=== PATIENT | male | born 1945 | race Caucasian/White ===

== ENCOUNTER 2021-03-04 14:39 | Inpatient (IN) | payer MEDICARE, MEDICAID, SELFPAY ==
[~2021-03-04] VITALS: Ht 162.6 cm; Wt 52.2 kg
--- NOTE | 2021-03-04 14:39 | NUR ---
PT BROUGHT TO BED 10 VIA [facility]
[2021-03-04 14:48] VITALS: BP 103/86
[2021-03-04] MEDS ORDERED: TAMS0.4C96 GT (15:14)
[2021-03-04] MEDS ORDERED: VANC25SO GT (15:14)
[2021-03-04] MEDS ORDERED: SULF-59 GT (15:14)
[2021-03-04] MEDS ORDERED: MULT-1328 GT (15:14)
[2021-03-04] MEDS ORDERED: LACT1CAP59 GT (15:14)
[2021-03-04] MEDS ORDERED: CLOP75TA26 GT (15:14)
[2021-03-04] MEDS ORDERED: PANT40EC GT (15:14)
[2021-03-04] MEDS ORDERED: PUL.5N INH (15:14)
[2021-03-04] MEDS ORDERED: ATOR10TA GT (15:14)
[2021-03-04] MEDS ORDERED: VITA-16 GT (15:14)
[2021-03-04] MEDS ORDERED: METO25TE2 GT (15:14)
[2021-03-04 15:25] LABS: BASOPHILS # (AUTO) 0.1 K/uL (0.00-0.22); BASOPHILS % (AUTO) 0.8 % (0.0-2.0); EOSINOPHILS # (AUTO) 0.2 K/uL (0-0.4); EOSINOPHILS % (AUTO) 1.8 % (0.0-4.0); HEMATOCRIT 27.6 % (36-52); HEMOGLOBIN 9.1 g/dL (12.0-18.0); LYMPHOCYTES # (AUTO) 2.2 K/uL (2.0-11.5); LYMPHOCYTES % (AUTO) 22.3 % (20.5-51.1); MEAN CORPUSCULAR HEMOGLOBIN 29 pg (27-31); MEAN CORPUSCULAR HGB CONC 33 g/dL (33-37); MEAN CORPUSCULAR VOLUME 87.2 fL (80-94); MONOCYTES # (AUTO) 0.8 K/uL (0.8-1.0); MONOCYTES % (AUTO) 8.6 % (1.7-9.3); NEUTROPHILS # (AUTO) 6.5 K/uL (1.8-7.7); NEUTROPHILS % (AUTO) 66.5 % (42.2-75.2); PLATELET COUNT (AUTO) 369 K/uL (140-450); RED BLOOD CELL COUNT(AUTO) 3.17 MIL/uL (4.20-6.10); RED CELL DISTRIBUTION WIDTH 19.2 % (11.6-13.7); WHITE BLOOD COUNT (AUTO) 9.8 K/uL (4.8-10.8)
--- NOTE | 2021-03-04 15:29 | NUR ---
JUNITO FROM [facility] FOR SOB/RESP DISTRESS X1 DAY. PATIENT IS NOT ORIENTED, NOT ABLE TO RESPOND TO ANY COMMANDS (AT BASELINE), GCS 11,RESP EVEN AND LABORED. RR: 45. KAYE HEARD TO BILAT LOWER LOBES. EDEMA NOTED TO RUE. PT IS A DNR/DNI (SELECTIVE TREATMENT). PATIENT APHASIC. EMS REPORTED THAT PATIENTS WAS EN ROUTE TO HOSPITAL TO ASSIST WITH INFORMATION. HX: CEREBRAL INFARCTION
--- NOTE | 2021-03-04 15:30 | NUR ---
COVID SWABS AND FLU SWAB OBTAINED
--- NOTE | 2021-03-04 15:31 | NUR ---
XRAY AT BEDSIDE AT THIS TIME
--- NOTE | 2021-03-04 15:35 | NUR ---
MIGUEL BUCKLEYZ [phone]
[2021-03-04 15:36] LABS: PROTHROMBIN TIME 12.5 secs (10.8-13.4)
[2021-03-04 15:39] LABS: ALBUMIN 1.3 g/dL (3.4-5.0); ASPARTATE AMINOTRANSFERASE 55 U/L (15-37); CARBON DIOXIDE 26.9 mmol/L (21-32); CHLORIDE 113 mmol/L (98-107); CREATININE 1.5 mg/dL (0.6-1.3); GLUCOSE 108 mg/dL (74-106); POTASSIUM 3.9 mmol/L (3.5-5.1); SODIUM SERUM 146 mmol/L (136-145); TOTAL BILIRUBIN 0.4 mg/dL (0.0-1.0); UREA NITROGEN, BLOOD 33 mg/dL (7-18)
[2021-03-04 15:45] LABS: BILIRUBIN,URINE NEGATIVE (NEGATIVE); BLOOD, URINE 1+ (NEGATIVE); COLOR,URINE YELLOW (YELLOW); LEUKOCYTE ESTERASE ,URINE 2+ (NEGATIVE); NITRITE, URINE NEGATIVE (NEGATIVE); UGLUCOSE NEGATIVE (NEGATIVE)
[2021-03-04 15:47] LABS: APPEARANCE,URINE HAZY (CLEAR)
[2021-03-04 15:48] LABS: C-REACTIVE PROTEIN QUANT 5.9 mg/dL (0.0-0.9); LACTATE DEHYDROGENASE 255 U/L (85-227)
[2021-03-04] MEDS ORDERED: AZITHROMYCIN 500 MG in DEXTROSE 5% 250 ML IV ONE (16:15)
[2021-03-04] MEDS ORDERED: DEXAMETHASONE 10 MG/ML VIAL IVP ONE (16:15)
[2021-03-04] MEDS ORDERED: cefTRIAXone 1,000 MG VIAL ONE (16:20)
[2021-03-04] MEDS ORDERED: AZITHROMYCIN 500 MG INJ VIAL IV ONE (16:38)
[2021-03-04 16:39] LABS: WBC,URINE TOO MANY TO COUNT /HPF (0-5); YEAST,URINE Moderate /HPF (None Seen)
[2021-03-04] MEDS ORDERED: NACL 0.9% 500 ML IV ONE (16:55)
--- NOTE | 2021-03-04 17:00 | NUR ---
PATIENTS RESPIRATIONS CONTINUE TO BE LABORED AND TACHYPNEIC, MADE AWARE OF PATIENTS CONDITION AND WOULD LIKE TO REMAIN UPDATED WITH ANY CHANGES
--- NOTE | 2021-03-04 17:51 | NUR ---
DAUGHTER DARYL MILLER [phone] CALLED INQUIRING ABOUT VISIT
--- NOTE | 2021-03-04 18:20 | NUR ---
PATIENTS DAUGHTER AT BEDSIDE AT THIS TIME
[2021-03-04] MEDS: DEXT 5% / NACL 0.9% 500 ML IV SCH ×2 (18:31→23:40)
[2021-03-04] MEDS ORDERED: HYDROcodone/APAP 7.5/325 MG 1 TAB PO PRN (19:05)
[2021-03-04] MEDS ORDERED: DOCUSATE SODIUM 100 MG GELCAP PO PRN (19:05)
[2021-03-04] MEDS ORDERED: ACETAMINOPHEN 325 MG TAB PO PRN (19:05)
[2021-03-04] MEDS ORDERED: ONDANSETRON 4 MG/2 ML VIAL IM/IVP PRN (19:05)
[2021-03-04] MEDS ORDERED: ZOLPIDEM 5 MG TAB PO PRN (19:05)
[2021-03-04] MEDS ORDERED: guaiFENesin DM 200/20 MG-10 ML 10 ML UDC PO PRN (19:05)
[2021-03-04] MEDS ORDERED: POTASSIUM CHLORIDE 10 MEQ TABER PO PRN (19:05)
[2021-03-04] MEDS ORDERED: ALBUTEROL SULFATE/IPRATROPIU 3 ML SOL IH PRN (19:10)
--- NOTE | 2021-03-04 19:19 | NUR ---
HANDOFF REPORT GIVEN TO DARLEEN RN
--- NOTE | 2021-03-04 19:19 | NUR ---
received report from BENJAMIN Hi for continuity of care
[2021-03-04 20:05] LABS: CHOL/HDL RATIO 4.4 (1-4.5); FREE T4 (FREE THYROXINE) 1.03 ng/dL (0.76-1.46); MAGNESIUM 1.7 mg/dL (1.8-2.4); PHOSPHORUS 4.2 mg/dL (2.5-4.9); THYROID STIMULATING HORMONE 3.23 uIU/mL (0.34-3.74)
[2021-03-04] MEDS ORDERED: PIPERACILLIN/TAZOBACTAM 3.375 GM VIAL IV ONE (20:30)
--- NOTE | 2021-03-04 20:32 | NUR ---
COLEEND made aware of increased RR up to 40s-50s
--- NOTE | 2021-03-04 20:36 | NUR ---
called about updates and to verify code status. patient is DNR
[2021-03-04] MEDS: PIPERACILLIN/TAZOBACTAM 3.375 GM in DEXTROSE 5% 50 ML IV SCH (20:40)
[2021-03-04] MEDS ORDERED: CRUSHER, PILL MC ONE (21:38)
[2021-03-04] MEDS: CLOPIDOGREL 75 MG TAB GT SCH (21:50)
[2021-03-04] MEDS: FLUCONAZOLE 100 MG/NS PREMIX 50 ML IV SCH (22:02)
[2021-03-04] MEDS ORDERED: FLUCONAZOLE 200 MG/NS PREMIX 100 ML IV ONE (22:44)
--- NOTE | 2021-03-05 | NUR ---
Patient will be admitted to care of Brandi POOLE. Admited to ICU for convenience. Will go to bed 1. Belongings list completed. Report to Miguel RN and Aye RN.
--- NOTE | 2021-03-05 00:25 | NUR ---
RECEIVED PT FROM ER NURSE; PT NON VERBAL, UNABLE TO FOLLOW COMMANDS, MULTIPLE CONTRACTURES NOTED. PT AFEBRILE. PT OPENS EYES AWAKE, UNABLE TO TRACK. ST ON MONITOR 110-120S, EDEMA NOTED TO R THIGH R ARM. PT ON NRB 15L, NO COUGH NOTED. ABD SOFT NON DISTENDED. PEG TUBE IN PLACE. COLLAZO CATH IN PLACE YELLOW URINE CLOUDY. SKIN ON INTACT, MULTIPLE WOUNDS TO SACRAL AREA, L HIP, L ANKLE. BED LOCKED IN LOWEST POSITION. IV TO L WRIST 22 G, PATENT WITH IVF RUNNING. CALL LIGHT WITHIN REACH. HOB>30 DEGREES. SAFETY PRECAUTIONS IN PLACE.
--- NOTE | 2021-03-05 00:30 | NUR ---
SCDS APPLIED, FALL PRECAUTIONS &, ALLERGY BAND PLACED ON PT. DROPLET PRECAUTIONS IN PLACE.
--- NOTE | 2021-03-05 01:00 | NUR ---
PHONE CALL MADE TO [facility] [phone] TO F/U COVID/PNA/FLU VACCINATION; NO ANSWER
--- NOTE | 2021-03-05 02:20 | NUR ---
PT SEEN AND ASSESSED. PT ON NRB MASK AT 15L. SPO2 100%. PLACED PT ON NASAL CANNULA BUT WAS UNABLE TO OBTAINED SPO2>90 ON 6L NC. PLACED PT BACK ON NRB MASK 15L AND NOTIFIED RN. WILL WEAN LITER FLOW TOLERATED.
[2021-03-05 04:00] VITALS: BP 104/68
--- NOTE | 2021-03-05 04:00 | NUR ---
LAB @ BEDSIDE FOR AM DRAW
[2021-03-05] MEDS ORDERED: PIPERACILLIN/TAZOBACTAM 3.375 GM VIAL IV ONE (05:09)
--- NOTE | 2021-03-05 05:15 | NUR ---
PT TURNED AND REPOSITIONED, NO S/S OF DISTRESS NOTED. WILL CONTINUE TO OBSERVE.
[2021-03-05] MEDS: PIPERACILLIN/TAZOBACTAM 3.375 GM in DEXTROSE 5% 50 ML IV SCH (05:18)
[2021-03-05] MEDS: DEXT 5% / NACL 0.9% 500 ML IV SCH (05:18)
[2021-03-05 05:57] LABS: BASOPHILS % (AUTO) 0.2 % (0.0-2.0); EOSINOPHILS # (AUTO) 0.2 K/uL (0-0.4); HEMATOCRIT 27.4 % (36-52); HEMOGLOBIN 8.8 g/dL (12.0-18.0); LYMPHOCYTES % (AUTO) 12.2 % (20.5-51.1); MEAN CORPUSCULAR HEMOGLOBIN 29 pg (27-31); MEAN CORPUSCULAR HGB CONC 32 g/dL (33-37); MEAN CORPUSCULAR VOLUME 89.8 fL (80-94); MONOCYTES # (AUTO) 0.2 K/uL (0.8-1.0); MONOCYTES % (AUTO) 2.3 % (1.7-9.3); NEUTROPHILS # (AUTO) 6.7 K/uL (1.8-7.7); NEUTROPHILS % (AUTO) 83.3 % (42.2-75.2); PLATELET COUNT (AUTO) 344 K/uL (140-450); RED BLOOD CELL COUNT(AUTO) 3.05 MIL/uL (4.20-6.10); RED CELL DISTRIBUTION WIDTH 19.8 % (11.6-13.7); WHITE BLOOD COUNT (AUTO) 8.1 K/uL (4.8-10.8)
--- NOTE | 2021-03-05 06:19 | NUR ---
PHONE CALL AGAIN TO [facility]; PER PERSONNEL THEY DON'T HAVE THE CHART ANYMORE; TO CALL AFTER 8AM FOR MEDICAL RECORDS. Addendum: 03/05/21 at 0623 by Kayley Barkley RN SPOKE WITH ELIZ
[2021-03-05 06:25] LABS: ANION GAP 10.1 (8-16); CARBON DIOXIDE 27.6 mmol/L (21-32); CHLORIDE 114 mmol/L (98-107); CREATININE 1.5 mg/dL (0.6-1.3); GLUCOSE 177 mg/dL (74-106); POTASSIUM 4.7 mmol/L (3.5-5.1); SODIUM SERUM 147 mmol/L (136-145); UREA NITROGEN, BLOOD 33 mg/dL (7-18)
[2021-03-05] MEDS: ALBUTEROL SULFATE/IPRATROPIU 3 ML SOL IH SCH ×3 (07:05→19:00)
--- NOTE | 2021-03-05 07:08 | NUR ---
REPORT GIVEN TO DAY SHIFT FOR CONTINUITY OF CARE
--- NOTE | 2021-03-05 07:09 | NUR ---
RECEIVED BEDSIDE REPORT FROM OIL WELL CABLE TOOL DRILLER NURSE CARTER RN, PT RESTING, NO DISTRESS NOTED, AAOX1 APHASIC AT BASELINE, CONTRACTED. PT IN22RBN O2 VIA NON REBREATHER MASK, NO SOB NOTED, SATURATING @ 100%. IV TO LEFT HAND 22G PATENT INTACT, INFUSING D5NS @ 100ML/HR, INFUSING WELL. COLLAZO CATH IN PLACE DRAINING TO GRAVITY. INITIAL ASSESSMENT DONE, ALL SAFETY PRECAUTION MET, CALL LIGHT WITHIN REACH, WILL CONTINUE TO MONITOR. Addendum: 03/05/21 at 0757 by Alina Miller RN GT IN PLACE WITH FEEDING.
--- NOTE | 2021-03-05 07:36 | NUR ---
PATIENT HAS BEEN SCREENED AND CATEGORIZED HIGH NUTRITION RISK. PATIENT WILL BE SEEN WITHIN 1-2 DAYS OF ADMISSION. 03/05/21-03/06/21 FNS REFERRAL WAS RECEIVED FOR TUBE FEEDING [address]
[2021-03-05 08:00] VITALS: BP 103/63
[2021-03-05] MEDS: CLOPIDOGREL 75 MG TAB GT SCH (09:43)
[2021-03-05] MEDS: PANTOPRAZOLE 40 MG TABEC PO SCH (09:43)
[2021-03-05] MEDS: TAMSULOSIN 0.4 MG CAP GT SCH (09:44)
--- NOTE | 2021-03-05 09:44 | NUR ---
DUE MEDICATIONS ADMINISTERED, PT TOLERATED WELL, NO DISTRESS NOTED, WILL CONTINUE TO MONITOR.
--- NOTE | 2021-03-05 11:05 | NUR ---
TITRATED PT TO CURAPLEX HFNC @10L, SPO2 97%. TOLERATING WELL.
[2021-03-05 12:00] VITALS: BP 121/77
[2021-03-05] MEDS: DEXT 5% /NACL 0.9% 1,000 ML IV SCH ×2 (12:22→17:00)
[2021-03-05] MEDS: VANCOMYCIN 1,000 MG VIAL PO SCH ×3 (12:25→23:56)
[2021-03-05] MEDS ORDERED: VANCOMYCIN 500 MG VIAL PO SCH (12:45)
[2021-03-05] MEDS: metroNIDAZOLE 500 MG/NS PREMIX 100 ML IV SCH ×2 (13:09→20:46)
--- NOTE | 2021-03-05 13:09 | NUR ---
MEDICATIONS ADMINISTERED, WILL CONTINUE TO MONITOR.
--- NOTE | 2021-03-05 13:27 | NUR ---
WOUND CLEANED AND DRESSING CHANGED, WOUND NURSE AT BEDSIDE, WILL CONTINUE TO MONITOR
--- NOTE | 2021-03-05 13:28 | NUR ---
WOUND CARE EVALUATION NOTE: REASON FOR EVALUATION: LOW FRANCISCA SCALE AND MULTIPLE WOUNDS SKIN ASSESSMENT DONE WITH THIS 75 Y/O PT ADMITTED FROM SNF TO [facility] WITH INITIAL DX SOB. PAST MEDICAL HX OF STROKE, CAD AND CKD. PT. ADMITTED WITH PRESSURE INJURY WOUNDS, G-TUBE. ALL ABOVE INFORMATION OBTAINED FROM ADMISSION H&P. PT IS AWAKE. ON 15 L NRB. SKIN IS WARM, THIN AND EASILY TO TORN, ALL EXTREMITIES CONTRACTURES. BLE HAIR GROWTH, NO EDEMA. DORSAL PEDAL PULSES PRESENT AND NORMAL. CAPILLARY REFILLED < 2 SEC. X 10 TOES. INCONTINENT OF BOWEL AND BLADDER. RECTAL BAG IN PLACE FOR C-DIFF DIARRHEA. PLAN OF CARE DISCUSSED WITH PRIMARY RN. 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 -SCROTAL SKIN RED INTACT WITH +1EDEMA -PRESSURE INJURY STAGE 3, LEFT TROCHANTER 4X3X0.2CM, WOUND BED 70% DARK PURPLE AND 30 % RED GRANULATING TISSUE, NO ODOR AND MOIST, ARISTEO-WOUND SKIN NON-BLANCHABLE DRY SKIN FURTHER DAMAGE INDICATED - PRESSURE INJURY STAGE 3, SACRAL COCCYX 2X2X0.2CM WOUND BED IS RED 100% GRANULATING TISSUE, MOIST, NO ODOR ARISTEO WOUND SKIN MOISTURE ASSOCIATED DERMATITIS WITH MULTIPLE SUPERFICIAL EROSIONS. -LEFT LATERAL MALLEOLUS DTI 3X2CM -LEFT FIRST METATARSAL HEAD PRESSURE INJURY STAGE 3, SACRAL COCCYX 2X2X0.2CM WOUND BED IS RED 50% GRANULATING TISSUE, 50% DARK BROWN NECROTIC TISSUE SMALL SEROSANGUINEOUS DRAINAGE, NO ODOR ARISTEO WOUND SKIN DRY INTACT. -RIGHT LATERAL MALLEOLUS DTI 0.5X0.5CM RECOMMENDATIONS: -APPLY HYDRAGUARD TO R/L GROINS EXTENDED TO SCROTAL SKIN BID AND PRN IF SOILING - CLEANSE LEFT HIP, LEFT FIRST METATARSAL HEAD AND SACRALCOCCYX WOUNDS WITH WOUND CLEANSING SOLUTION AND APPLY THERAHONEY GEL COVER WITH DRY DRESSING QD AND PRN IF SOILING -APPLY FORM DRESSING TO RIGHT AND LEFT LATERAL MALLEOLUS Q3 DAYS AND PRN IF SOILING AND OFFLOADING -APPLY HEEL PROTECTORS TO BOTH HEELS AT ALL TIMES -OFFLOAD BILATERAL HEELS BY PLACING PILLOWS UNDER CALVES UNLESS OTHERWISE CONTRAINDICATED -PRESSURE REDISTRIBUTION SURFACE THERAPY -TURN AND REPOSITION Q2H, OFFLOAD SACRALCOCCYX AND BUTTOCKS BY TURNING RIGHT AND LEFT -CONTINUE TO FOLLOW RD RECOMMENDATIONS ALL ABOVE RECOMMENDATIONS DISCUSSED WITH PRIMARY RN. PLEASE CONTACT WOUND CARE NURSE FOR ANY QUESTION AND CHANGE OF WOUND CONDITION. Addendum: 03/05/21 at 1355 by Lashae Zheng RN (Grace) CORRECTION: LEFT FIRST METATARSAL HEAD PRESSURE INJURY STAGE 3, 3X2X0.2CM WOUND BED IS RED 50% GRANULATING TISSUE, 50% DARK BROWN NECROTIC TISSUE SMALL SEROSANGUINEOUS DRAINAGE, NO ODOR ARISTEO WOUND SKIN DRY INTACT
--- NOTE | 2021-03-05 14:34 | NUR ---
03/05/21 RD INITIAL ASSESSMENT COMPLETED PLEASE REFER TO NUTRITION ASSESSMENT UNDER CARE ACTIVITY FOR ESTIMATED NUTRITIONAL NEEDS. 1. RECOMMEND GLUCERNA 1.2 @ 60 ML/HR WITH FREE WATER FLUSH OF 150 ML Q4H -THIS WILL PROVIDE 1728 KCAL AND 86 GM OF PROTEIN, MEETING 100% OF ESTIMATED KCAL NEEDS AND PROTEIN NEEDS 2. RECOMMEND VITAMIN C BID AND MULTIVITAMIN ONCE DAILY FOR WOUND HEALING 3. RD TO FOLLOW-UP 2-3 DAYS, HIGH RISK PARKER CR[address]Z RD
--- NOTE | 2021-03-05 14:35 | NUR ---
CDIFF STOOL SAMPLE COLLECTED, BROUGHT TO LAB.
[2021-03-05] MEDS: CEFEPIME 1,000 MG in DEXTROSE 5% 50 ML IV SCH (14:42)
[2021-03-05 16:00] VITALS: BP 104/66
--- NOTE | 2021-03-05 16:40 | NUR ---
GAVE REPORT TO BODY AND FENDER WORKERBENJAMIN MERAZ. PT IS GOING TO BE TRANSFERRED TO BED 118 TELE
[2021-03-05] MEDS: ATORVASTATIN 20 MG TAB GT SCH (17:48)
--- NOTE | 2021-03-05 17:48 | NUR ---
DUE MEDICATIONS ADMINISTERED, PT TOLERATED WELL, WILL CONTINUE TO MONITOR.
--- NOTE | 2021-03-05 18:03 | NUR ---
TRANSPORT PT TO ROOM 118.
--- NOTE | 2021-03-05 19:20 | NUR ---
RECEIVED PATIENT FROM AM SHIFT NURSE FOR CONTINUITY OF CARE. APHASIC, UNABLE TO MAKE NEEDS KNOWN. RESPIRATIONS EVEN, UNLABORED. NO S/S RESPIRATORY DISTRESS. CONTINUES ON O2 8L VIA OXIMIZER. O2SAT 97%. S1/S2 AUSCULTATED. TELE MONITORING. FLACC 0. SKIN WARM, DRY. IV SITE TO LEFT WRIST 20G PATENT/INTACT, INFUSING FLUIDS WELL. ABDOMEN SOFT, NONTENDER, NONDISTENDED. BOWEL SOUNDS ACTIVE x4 QUADRANTS. GT PATENT, CONTINUES ON ENTERAL FEEDING, TOLERATING WELL. MINIMAL RESIDUAL NOTED. HOB UP 30-45 DEGREES. COLLAZO CATHETER PATENT WITH YELLOW URINE DRAINING TO GRAVITY. PLAN OF CARE DISCUSSED. SAFETY PRECAUTIONS IN PLACE. CALL LIGHT WITHIN REACH AT ALL TIMES.
[2021-03-05 20:00] VITALS: BP 107/63
[2021-03-05] MEDS: FLUCONAZOLE 100 MG/NS PREMIX 50 ML IV SCH (20:05)
--- NOTE | 2021-03-05 21:45 | NUR ---
DUE MEDS GIVEN. NO S/S RESPIRATORY DISTRESS. DECREASED O2 FROM 8L TO 6L VIA OXIMIZER. O2SAT 94%. RESPIRATIONS EVEN, UNLABORED. FLACC 0. PATIENT IS CLEAN/DRY. SAFETY PRECAUTIONS IN PLACE. CALL LIGHT IN REACH.
--- NOTE | 2021-03-05 23:15 | NUR ---
TURNED AND REPOSITIONED WITH HOME SALES CONSULTANT AT BEDSIDE. NO S/S RESPIRATORY DISTRESS. FLACC 0. PATIENT IS CLEAN/DRY. SAFETY PRECAUTIONS IN PLACE. ISOLATION PRECAUTIONS OBSERVED BY ALL STAFF. DINO LIGHT IN REACH.
[2021-03-05] MEDS ORDERED: WATER STERILE MC ONE (23:42)
[2021-03-06] VITALS: BP 106/62
--- NOTE | 2021-03-06 01:03 | NUR ---
MADE ROUNDS. PATIENT IS ASLEEP. NO S/S RESPIRATORY DISTRESS. FLACC 0. PATIENT IS CLEAN/DRY. SAFETY PRECAUTIONS IN PLACE. ISOLATION PRECAUTIONS OBSERVED BY ALL STAFF. CALL LIGHT IN REACH.
[2021-03-06] MEDS: HYDRAGUARD CREAM TP SCH ×2 (01:04→13:00)
[2021-03-06] MEDS: DEXT 5% /NACL 0.9% 1,000 ML IV SCH (03:03)
--- NOTE | 2021-03-06 03:04 | NUR ---
PATIENT IS ASLEEP. NO S/S RESPIRATORY DISTRESS. NO S/S ACUTE DISTRESS. PATIENT CLEAN/DRY. CALL LIGHT IN REACH. SAFETY PRECAUTIONS IN PLACE.
[2021-03-06 04:00] VITALS: BP 133/79
[2021-03-06] MEDS: metroNIDAZOLE 500 MG/NS PREMIX 100 ML IV SCH ×3 (05:31→21:31)
[2021-03-06] MEDS: VANCOMYCIN 1,000 MG VIAL PO SCH ×4 (05:31→23:11)
--- NOTE | 2021-03-06 05:32 | NUR ---
ALL NEEDS ANTICIPATED AND MET. NO S/S RESPIRATORY DISTRESS. FLACC 0. PATIENT CLEAN/DRY. CALL LIGHT IN REACH. SAFETY PRECAUTIONS IN PLACE.
[2021-03-06 07:21] LABS: ANION GAP 13.4 (8-16); CARBON DIOXIDE 24.6 mmol/L (21-32); CHLORIDE 115 mmol/L (98-107); CREATININE 1.3 mg/dL (0.6-1.3); GLUCOSE 102 mg/dL (74-106); SODIUM SERUM 150 mmol/L (136-145); UREA NITROGEN, BLOOD 26 mg/dL (7-18)
--- NOTE | 2021-03-06 07:25 | NUR ---
RECEIVED REPORT FROM TERMINAL CLERK PT IS DIAGNOSED WITH MULTIFOCAL PNA, RESPIRATORY DISTRESS, SEPSIS, UTI. ALLERGIC TO PENICILLIN DNR, ON TUBE FEEDING HAVE COLLAZO CATHETER. IV ON LEFT G D5W 100ML/HR WOUND ON LEFT HIP AND SACRAL AREA. WILL CONTINUE CURRENT PLAN OF CARE.
[2021-03-06 07:35] LABS: BASOPHILS % (AUTO) 0.2 % (0.0-2.0); EOSINOPHILS # (AUTO) 0.1 K/uL (0-0.4); EOSINOPHILS % (AUTO) 0.7 % (0.0-4.0); HEMATOCRIT 28.6 % (36-52); HEMOGLOBIN 9.3 g/dL (12.0-18.0); LYMPHOCYTES # (AUTO) 1.8 K/uL (2.0-11.5); LYMPHOCYTES % (AUTO) 14.5 % (20.5-51.1); MEAN CORPUSCULAR HEMOGLOBIN 29 pg (27-31); MEAN CORPUSCULAR HGB CONC 33 g/dL (33-37); MEAN CORPUSCULAR VOLUME 88.2 fL (80-94); MONOCYTES % (AUTO) 7.8 % (1.7-9.3); NEUTROPHILS # (AUTO) 9.6 K/uL (1.8-7.7); NEUTROPHILS % (AUTO) 76.8 % (42.2-75.2); PLATELET COUNT (AUTO) 321 K/uL (140-450); RED BLOOD CELL COUNT(AUTO) 3.25 MIL/uL (4.20-6.10); RED CELL DISTRIBUTION WIDTH 19.3 % (11.6-13.7); WHITE BLOOD COUNT (AUTO) 12.5 K/uL (4.8-10.8)
[2021-03-06] MEDS: ALBUTEROL SULFATE/IPRATROPIU 3 ML SOL IH SCH ×3 (07:59→19:00)
[2021-03-06 08:00] VITALS: BP 135/85
[2021-03-06 08:07] LABS: T4 (THYROXINE) 5.8 ug/dL (4.5-12.0)
[2021-03-06] MEDS ORDERED: KCL 20 MEQ/WATER INJ PREMIX 200 ML IV PRN (09:10)
[2021-03-06] MEDS: ASCORBIC ACID 500 MG/5 ML ORASYR GT SCH (09:43)
[2021-03-06] MEDS: MULTIVITAMIN/MINERALS 1 TAB GT SCH (09:43)
[2021-03-06] MEDS: PANTOPRAZOLE 40 MG TABEC PO SCH (09:43)
[2021-03-06] MEDS: CLOPIDOGREL 75 MG TAB GT SCH (09:44)
[2021-03-06] MEDS: TAMSULOSIN 0.4 MG CAP GT SCH (09:44)
--- NOTE | 2021-03-06 09:56 | NUR ---
ALL PRESCRIBED MEDICATIONS GIVEN THROUGH G-TUBE NO RESIDUAL. NO SOB OR DISTRESS NOTED. WILL CONTINUE TO MONITOR PT
[2021-03-06] MEDS: DEXT 5% / NACL 0.45% 1,000 ML IV SCH ×2 (10:47→20:15)
[2021-03-06 12:00] VITALS: BP 133/72
[2021-03-06] MEDS ORDERED: POTASSIUM CHLORIDE 40 MEQ, LIDOCAINE MPF 1% 25 MG in NACL 0.9% 250 ML IV SCH (12:00)
--- NOTE | 2021-03-06 12:45 | NUR ---
ADMINISTERED PRESCRIBED MEDICATIONS PER MD ORDER WILL CONTINUE TO OBSERVE PT.
[2021-03-06] MEDS: THERAHONEY GEL 42.5 GM TP SCH (13:00)
--- NOTE | 2021-03-06 13:00 | NUR ---
CHANGED PT WOUND DRESSING APPLIED THERAHONEY AND HYDRAGUARD ON THE SACRAL AREA AND LEFT HIP. WILL CONTINUE TO MONITOR.
--- NOTE | 2021-03-06 13:30 | NUR ---
PT POTASSIUM LEVEL AT 3.0 DR JENKINS AWARE AND REPLACE WITH K RIDER 40 MEQ WITH LIDOCAINE AND 40 MEQ KDUR. PT TOLERATED WELL. WILL CONTINUE TO MONITOR.
--- NOTE | 2021-03-06 14:00 | NUR ---
ADMINISTERED CEFEPIME 1000 MG INFUSING WELL.
[2021-03-06] MEDS: CEFEPIME 1,000 MG in DEXTROSE 5% 50 ML IV SCH (14:14)
[2021-03-06 16:00] VITALS: BP 141/81
[2021-03-06] MEDS: ATORVASTATIN 20 MG TAB GT SCH (17:41)
--- NOTE | 2021-03-06 17:52 | NUR ---
PT RECEIVED PRESCRIBED MEDICATIONS PER MD ORDER. PT HAS 20 ML RESIDUAL. WILL CONTINUE TO MONITOR PT.
[2021-03-06] MEDS: FLUCONAZOLE 100 MG/NS PREMIX 50 ML IV SCH (18:35)
--- NOTE | 2021-03-06 18:43 | NUR ---
ADMINISTERED FLUCONAZOLE PER MD ORDER WILL CONTINUE TO MONITOR PT.
--- NOTE | 2021-03-06 19:20 | NUR ---
ENDORSED TO NIGHT NURSE FOR CONTINUITY OF CARE.
--- NOTE | 2021-03-06 19:20 | NUR ---
RECEIVED PATIENT FROM AM SHIFT NURSE FOR CONTINUITY OF CARE. APHASIC, UNABLE TO MAKE NEEDS KNOWN. RESPIRATIONS TACHYPNEIC, SLIGHTLY LABORED. O2SAT 98%. CONTINUES ON O2 6L VIA OXIMIZER. S1/S2 AUSCULTATED. TELE MONITORING. FLACC 0. SKIN WARM, DRY. IV SITE TO LEFT FOREARM 20G PATENT/INTACT, INFUSING FLUIDS WELL. ABDOMEN SOFT, NONTENDER, NONDISTENDED. BOWEL SOUNDS ACTIVE x4 QUADRANTS. GT PATENT, CONTINUES ON ENTERAL FEEDING, TOLERATING WELL. HOB UP 45 DEGREES. COLLAZO CATHETER PATENT WITH YELLOW URINE DRAINING TO GRAVITY. PLAN OF CARE DISCUSSED. SAFETY PRECAUTIONS IN PLACE. ISOLATION PRECAUTIONS OBSERVED BY ALL STAFF. CALL LIGHT IN REACH.
[2021-03-06 20:00] VITALS: BP 128/78
--- NOTE | 2021-03-06 21:30 | NUR ---
DUE MEDS GIVEN. NO S/S RESPIRATORY DISTRESS. FLACC 0. PATIENT IS CLEAN/DRY. CALL LIGHT IN REACH. SAFETY PRECAUTIONS IN PLACE. ISOLATION PRECAUTIONS OBSERVED BY ALL STAFF.
--- NOTE | 2021-03-06 23:23 | NUR ---
INCONTINENT CARE RENDERED. NO S/S RESPIRATORY DISTRESS. FLACC 0. CALL LIGHT IN REACH. SAFETY PRECAUTIONS IN PLACE. ISOLATION PRECAUTIONS OBSERVED BY ALL STAFF.
[2021-03-07] VITALS: BP 135/82
[2021-03-07] MEDS: HYDRAGUARD CREAM TP SCH ×2 (00:08→13:39)
--- NOTE | 2021-03-07 01:19 | NUR ---
MADE ROUNDS. PATIENT IS ASLEEP. NO S/S RESPIRATORY DISTRESS. FLACC 0. PATIENT IS CLEAN/DRY. CALL LIGHT WITHIN REACH. SAFETY PRECAUTIONS IN PLACE. ISOLATION PRECAUTIONS OBSERVED.
--- NOTE | 2021-03-07 03:25 | NUR ---
PATIENT IS ASLEEP. NO S/S RESPIRATORY DISTRESS. FLACC 0. PATIENT IS CLEAN/DRY. CALL LIGHT IN REACH. SAFETY PRECAUTIONS IN PLACE. ISOLATION PRECAUTIONS OBSERVED.
[2021-03-07] MEDS: metroNIDAZOLE 500 MG/NS PREMIX 100 ML IV SCH ×3 (05:09→21:43)
--- NOTE | 2021-03-07 05:30 | NUR ---
ALL NEEDS ANTICIPATED AND MET. INCONTINENT CARE RENDERED. NO S/S RESPIRATORY DISTRESS. FLACC 0. CALL LIGHT IN REACH. SAFETY PRECAUTIONS IN PLACE. ISOLATION PRECAUTIONS OBSERVED BY ALL STAFF.
[2021-03-07] MEDS: VANCOMYCIN 1,000 MG VIAL PO SCH (06:15)
[2021-03-07] MEDS: DEXT 5% / NACL 0.45% 1,000 ML IV SCH ×2 (06:16→16:05)
[2021-03-07 06:18] VITALS: BP 138/86
--- NOTE | 2021-03-07 07:26 | NUR ---
ENDORSED PATIENT TO AM SHIFT NURSE FOR CONTINUITY OF CARE.
--- NOTE | 2021-03-07 07:27 | NUR ---
RECEIVED REPORT FROM MANAGER TECHNICAL SUPPORT NURSE PT DIAGNOSED WITH MULTIFOCAL PNA, RESPIRATORY DISTRESS. PT HAS 2 BM LAST NIGHT. ON 6 L OF OXYGEN SATING AT 94-95%. HAS G TUBE FEEDING COLLAZO. PT HAS LEFT HIP AND SACRAL WOUND. WILL CONTINUE TO MONITOR PT AND CONTINUE CURRENT PLAN OF CARE.
[2021-03-07] MEDS: ALBUTEROL SULFATE/IPRATROPIU 3 ML SOL IH SCH ×4 (07:32→20:09)
[2021-03-07 07:45] LABS: BASOPHILS % (AUTO) 0.5 % (0.0-2.0); EOSINOPHILS # (AUTO) 0.2 K/uL (0-0.4); HEMATOCRIT 26.8 % (36-52); HEMOGLOBIN 8.7 g/dL (12.0-18.0); LYMPHOCYTES # (AUTO) 1.5 K/uL (2.0-11.5); LYMPHOCYTES % (AUTO) 17.9 % (20.5-51.1); MEAN CORPUSCULAR HEMOGLOBIN 29 pg (27-31); MEAN CORPUSCULAR HGB CONC 32 g/dL (33-37); MEAN CORPUSCULAR VOLUME 88.7 fL (80-94); MONOCYTES # (AUTO) 0.8 K/uL (0.8-1.0); MONOCYTES % (AUTO) 9.5 % (1.7-9.3); NEUTROPHILS # (AUTO) 5.7 K/uL (1.8-7.7); NEUTROPHILS % (AUTO) 70.1 % (42.2-75.2); PLATELET COUNT (AUTO) 331 K/uL (140-450); RED BLOOD CELL COUNT(AUTO) 3.02 MIL/uL (4.20-6.10); RED CELL DISTRIBUTION WIDTH 19.5 % (11.6-13.7); WHITE BLOOD COUNT (AUTO) 8.1 K/uL (4.8-10.8)
[2021-03-07 08:00] VITALS: BP 135/80
[2021-03-07 08:04] LABS: ANION GAP 8.8 (8-16); CARBON DIOXIDE 27.1 mmol/L (21-32); CHLORIDE 113 mmol/L (98-107); CREATININE 1.2 mg/dL (0.6-1.3); GLUCOSE 115 mg/dL (74-106); POTASSIUM 3.9 mmol/L (3.5-5.1); SODIUM SERUM 145 mmol/L (136-145); UREA NITROGEN, BLOOD 22 mg/dL (7-18)
[2021-03-07] MEDS: ASCORBIC ACID 500 MG/5 ML ORASYR GT SCH (08:59)
[2021-03-07] MEDS: CLOPIDOGREL 75 MG TAB GT SCH (08:59)
[2021-03-07] MEDS: PANTOPRAZOLE 40 MG TABEC PO SCH (08:59)
[2021-03-07] MEDS: MULTIVITAMIN/MINERALS 1 TAB GT SCH (08:59)
[2021-03-07] MEDS: TAMSULOSIN 0.4 MG CAP GT SCH (08:59)
--- NOTE | 2021-03-07 09:14 | NUR ---
ADMINISTERED PRESCRIBED MEDICATIONS PER MD ORDER VIA G TUBE. 10 ML RESIDUAL, 1000ML URIN. COLLAZO IS INTACT. WILL CONTINUE TO MONITOR PT.
--- NOTE | 2021-03-07 11:30 | NUR ---
PT IS IN THE BED NO SOB OR DISTRESS NOTED. G TUBE FEEDING IS RUNNING AT 60ML. NO NON VERBAL SIGN OF PAIN OR DISCOMFORT NOTED.
[2021-03-07 12:00] VITALS: BP 116/74
[2021-03-07] MEDS: VANCOMYCIN HCL 25 MG/ML SOLN PO SCH ×2 (12:16→17:23)
--- NOTE | 2021-03-07 12:25 | NUR ---
PT RECEIVED PRESCRIBED MEDICATIONS PER MD ORDER VIA G TUBE. NO RESIDUAL.
[2021-03-07] MEDS: THERAHONEY GEL 42.5 GM TP SCH (13:39)
[2021-03-07] MEDS: CEFEPIME 1,000 MG in DEXTROSE 5% 50 ML IV SCH (13:49)
--- NOTE | 2021-03-07 14:00 | NUR ---
ADMINISTERED SCHEDULED MEDICATION CEFEPIME 1000 MG AT 100 MLS/HR INFUSING WELL AND PATIENT AT 2LPM OXIMIZER SATURATING AT 98%. WILL CONTINUE TO MONITOR.
--- NOTE | 2021-03-07 14:14 | NUR ---
PATIENTS CALLED AND GAVE UPDATES REGARDING THE PATIENT. PT ABLE TO HEAR 'S VOICE OVER THE PHONE.
--- NOTE | 2021-03-07 14:20 | NUR ---
BREATHING TREATMENT DONE AT THIS TIME PATIENT IS STABLE NO DISTRESS NOTED.
[2021-03-07 16:00] VITALS: BP 138/81
[2021-03-07] MEDS: ATORVASTATIN 20 MG TAB GT SCH (17:22)
--- NOTE | 2021-03-07 17:31 | NUR ---
ADMINISTERED MEDICATIONS VIA G TUBE PER MD ORDER. 10 ML RESIDUAL, G TUBE IS PATENT. WILL CONTINUE TO MONITOR PT.
--- NOTE | 2021-03-07 19:15 | NUR ---
ENDORSED NIGHT NURSE FOR CONTINUITY OF CARE.
--- NOTE | 2021-03-07 19:20 | NUR ---
RECEIVED REPORT FROM MIRNA ALEXANDER FOR CONTINUITY OF CARE. PT SITTING UP AA, NONVERBAL, RESPONSIVE TO NAME BEING CALLED. NO APPARENT S/S OF ACUTE DISTRESS. BREATHING EVEN AND UNLABORED ON 2L OXIMIZER WITH O2 SAT OF 95%. L WRIST 20G INTACT/PATENT WITH D5 1/2NS@100ML/HR. G-TUBE INTACT/PATENT WITH GLUCERNA 1.2@60CC/HR. COLLAZO CATH INTACT/PATENT WITH PALE YELLOW URINE DRAINING TO GRAVITY. POC AND WHITE COMMUNICATION BOARD UPDATED. BED IN LOW/LOCKED POSITION. CALL LIGHT WITHIN REACH. PT ENCOURAGED TO CALL FOR ANY NEEDS/ASSISTANCE. WILL CONTINUE TO MONITOR.
[2021-03-07 20:00] VITALS: BP 137/79
[2021-03-08] VITALS: BP 142/85
[2021-03-08] MEDS: HYDRAGUARD CREAM TP SCH ×2 (01:03→12:28)
[2021-03-08] MEDS: DEXT 5% / NACL 0.45% 1,000 ML IV SCH ×3 (02:15→22:15)
[2021-03-08 04:00] VITALS: BP 144/91
[2021-03-08] MEDS: metroNIDAZOLE 500 MG/NS PREMIX 100 ML IV SCH ×3 (04:52→20:57)
[2021-03-08] MEDS: VANCOMYCIN HCL 25 MG/ML SOLN PO SCH ×4 (05:46→17:44)
--- NOTE | 2021-03-08 07:13 | NUR ---
REPORT GIVEN TO CARMEN ALEXANDER FOR CONTINUITY OF CARE. NO APPARENT S/S OF ACUTE DISTRESS. BREATHING EVEN AND UNLABORED. BED IN LOW/LOCKED POSITION. CALL LIGHT WITHIN REACH. ALL NEEDS MET AT THIS TIME.
--- NOTE | 2021-03-08 07:21 | NUR ---
RECEIVED REPORT FROM COATING MIXER SUPERVISOR FOR CONTINUITY OF CARE, POC DISCUSSED. PT IS ASLEEP IN BED WITH NO ACUTE S/S OF DISTRESS. PT IS ON 2L HIGH FLOW SATING AT 95%, READING SINUS TACH AT 111 ON THE MONITOR. PT IS ON CONTACT PRECAUTIONS FOR CDIFF POSITIVE. PT IS ALERT AND ORIENTED X1 AT BASELINE. PT A LEFT HIP, SACRAL, RIGHT AND LEFT ANKLE, AND LEFT TOE WOUND. PT IS RECEIVING GTUBE FEEDINGS GLUCERNA 60ML WITH Q4HR FLUSHES OF 150. PT HAS A LEFT WRIST 20 G RUNNING D5 0.45% NS @ 100 ML. ALL SAFETY MEASURES IN PLACE, CALL LIGHT WITHIN REACH. WILL CONTINUE TO MONITOR.
[2021-03-08 07:26] LABS: BASOPHILS # (AUTO) 0.1 K/uL (0.00-0.22); BASOPHILS % (AUTO) 0.6 % (0.0-2.0); EOSINOPHILS # (AUTO) 0.2 K/uL (0-0.4); EOSINOPHILS % (AUTO) 1.5 % (0.0-4.0); HEMATOCRIT 28.1 % (36-52); HEMOGLOBIN 9.1 g/dL (12.0-18.0); LYMPHOCYTES # (AUTO) 2.2 K/uL (2.0-11.5); MEAN CORPUSCULAR HEMOGLOBIN 28 pg (27-31); MEAN CORPUSCULAR HGB CONC 33 g/dL (33-37); MEAN CORPUSCULAR VOLUME 87.3 fL (80-94); MONOCYTES # (AUTO) 0.9 K/uL (0.8-1.0); NEUTROPHILS # (AUTO) 8.9 K/uL (1.8-7.7); NEUTROPHILS % (AUTO) 72.9 % (42.2-75.2); PLATELET COUNT (AUTO) 343 K/uL (140-450); RED BLOOD CELL COUNT(AUTO) 3.22 MIL/uL (4.20-6.10); RED CELL DISTRIBUTION WIDTH 19.3 % (11.6-13.7); WHITE BLOOD COUNT (AUTO) 12.2 K/uL (4.8-10.8)
[2021-03-08 07:40] LABS: ANION GAP 8.7 (8-16); CHLORIDE 106 mmol/L (98-107); CREATININE 1.2 mg/dL (0.6-1.3); GLUCOSE 126 mg/dL (74-106); POTASSIUM 3.7 mmol/L (3.5-5.1); SODIUM SERUM 137 mmol/L (136-145); UREA NITROGEN, BLOOD 21 mg/dL (7-18)
[2021-03-08] MEDS: ALBUTEROL SULFATE/IPRATROPIU 3 ML SOL IH SCH ×3 (07:50→19:20)
[2021-03-08 08:00] VITALS: BP 128/79
--- NOTE | 2021-03-08 09:35 | NUR ---
PT IS ASLEEP IN BED WITH NO ACUTE S/S OF DISTRESS. PT IS ON 2L HIGH FLOW SATING AT 94%, HEART RATE 108 ON THE MONITOR. PT IS ON CONTACT PRECAUTIONS FOR C. DIFF POSITIVE. PT IS RECEIVING G. TUBE FEEDINGS GLUCERNA 60ML WITH Q4HR FLUSHES OF 150. PT GO MEDICATED ORDERED
[2021-03-08] MEDS: MULTIVITAMIN/MINERALS 1 TAB GT SCH (09:53)
[2021-03-08] MEDS: PANTOPRAZOLE 40 MG TABEC PO SCH (09:53)
[2021-03-08] MEDS: CLOPIDOGREL 75 MG TAB GT SCH (09:53)
[2021-03-08] MEDS: ASCORBIC ACID 500 MG/5 ML ORASYR GT SCH (09:54)
[2021-03-08] MEDS: TAMSULOSIN 0.4 MG CAP GT SCH (09:54)
--- NOTE | 2021-03-08 11:35 | NUR ---
PT IS ASLEEP IN BED WITH NO ACUTE S/S OF DISTRESS NOTED, SAFETY MEASURES ON PLACE, CALLS LIGHT WITHIN REACH
[2021-03-08 12:00] VITALS: BP 127/81
[2021-03-08] MEDS: THERAHONEY GEL 42.5 GM TP SCH (12:28)
--- NOTE | 2021-03-08 12:42 | NUR ---
03/08/21 RD FOLLOW UP COMPLETED PLEASE REFER TO NUTRITION ASSESSMENT UNDER CARE ACTIVITY FOR ESTIMATED NUTRITIONAL NEEDS. 1. CONTINUE GLUCERNA 1.2 @ 60 ML/HR WITH FREE WATER FLUSH OF 150 ML Q4H -THIS WILL PROVIDE 1728 KCAL AND 86 GM OF PROTEIN, MEETING 100% OF ESTIMATED KCAL NEEDS AND PROTEIN NEEDS 2. CONTINUE VITAMIN C BID AND MULTIVITAMIN ONCE DAILY 3. RD TO FOLLOW-UP 2-3 DAYS, HIGH RISK PARKER CRUZ RD
--- NOTE | 2021-03-08 12:53 | NUR ---
PT ON BED NO ACUTE S/S OF DISTRESS. PT IS ON 2L FLOW SATING AT 95%, HEART RATE 102 ON THE MONITOR. PT IS ON CONTACT PRECAUTIONS FOR C. DIFF POSITIVE. PT IS RECEIVING G. TUBE FEEDINGS GLUCERNA 60ML WITH Q4HR FLUSHES OF 150. PT GOT MEDICATED ORDERED. SAFETY MEASURES ON PLACE, CALLS LIGHT WITHIN REACH
[2021-03-08] MEDS ORDERED: FOAM DRESSING TP SCH (13:00)
[2021-03-08] MEDS: CEFEPIME 1,000 MG in DEXTROSE 5% 50 ML IV SCH (14:11)
--- NOTE | 2021-03-08 14:24 | NUR ---
CHARITY MEDICATION ADMINISTERED PER MD ORDER, PT IS ASLEEP IN BED WITH NO ACUTE S/S OF DISTRESS. ALL SAFETY MEASURES IN PLACE, WILL CONTINUE TO MONITOR
[2021-03-08 16:00] VITALS: BP 137/80
--- NOTE | 2021-03-08 16:55 | NUR ---
PT IS ASLEEP IN BED WITH NO ACUTE S/S OF DISTRESS BREATH EVEN UNLABORED. ALL SAFETY MEASURES IN PLACE, WILL CONTINUE TO MONITOR
[2021-03-08] MEDS: ATORVASTATIN 20 MG TAB GT SCH (17:44)
--- NOTE | 2021-03-08 18:19 | NUR ---
PT IS LAYING IN BED WITH NO ACUTE S/S OF DISTRESS NOTED BREATH EVEN UNLABORED PT GOT CHANGED, PT RECEIVE WOUND TREATMENT. ALL SAFETY MEASURES IN PLACE, WILL CONTINUE TO MONITOR
--- NOTE | 2021-03-08 19:10 | NUR ---
RECEIVED REPORT FROM [place] ALEXANDER FOR CONTINUITY OF CARE. PT RESTING COMFORTABLY. NO APPARENT S/S OF ACUTE DISTRESS. BREATHING EVEN AND UNLABORED ON 2L OXIMIZER WITH O2 SAT OF 94%. L WRIST 20G INTACT/PATENT WITH D5 1/2NS@100ML/HR. GTUBE INTACT/PATENT WITH GLUCERNA 1.2@60ML/HR. COLLAZO CATH INTACT/PATENT WITH PALE YELLOW URINE DRAINING TO GRAVITY. POC AND WHITE COMMUNICATION BOARD UPDATED. BED IN LOW/LOCKED POSITION. CALL LIGHT WITH REACH. PT ENCOURAGED TO CALL FOR ANY NEEDS/ASSISTANCE. WILL CONTINUE TO MONITOR.
--- NOTE | 2021-03-08 19:17 | NUR ---
PT ENDORSED TO COLORER HIDES AND SKINS NURSE FOR CONTINUITY OF CARE, PT IS STABLE.
[2021-03-08 20:00] VITALS: BP 153/93
--- NOTE | 2021-03-08 20:30 | NUR ---
PT DESATURATING, O2 DROPPING INTO 80'S, LOW 82%. O2 TITRATED UP TO MEET PATIENT NEEDS. O2 @10L NOW, WITH SUFFICIENT SATURATION OF 94%. WILL WEAN PRN.
[2021-03-09] VITALS: BP 146/92
[2021-03-09] MEDS: VANCOMYCIN HCL 25 MG/ML SOLN PO SCH ×4 (00:19→17:34)
[2021-03-09 00:48] VITALS: BP 110/65
[2021-03-09] MEDS: HYDRAGUARD CREAM TP SCH ×2 (01:08→12:58)
[2021-03-09 04:00] VITALS: BP 146/90
[2021-03-09] MEDS: metroNIDAZOLE 500 MG/NS PREMIX 100 ML IV SCH ×3 (05:00→21:00)
[2021-03-09 07:09] LABS: ANION GAP 10.4 (8-16); BASOPHILS # (AUTO) 0.1 K/uL (0.00-0.22); BASOPHILS % (AUTO) 0.3 % (0.0-2.0); CARBON DIOXIDE 27.3 mmol/L (21-32); CHLORIDE 105 mmol/L (98-107); CREATININE 1.1 mg/dL (0.6-1.3); EOSINOPHILS # (AUTO) 0.3 K/uL (0-0.4); EOSINOPHILS % (AUTO) 1.7 % (0.0-4.0); GLUCOSE 117 mg/dL (74-106); HEMATOCRIT 29.2 % (36-52); HEMOGLOBIN 9.7 g/dL (12.0-18.0); LYMPHOCYTES % (AUTO) 12.6 % (20.5-51.1); MEAN CORPUSCULAR HEMOGLOBIN 29 pg (27-31); MEAN CORPUSCULAR HGB CONC 33 g/dL (33-37); MEAN CORPUSCULAR VOLUME 86.1 fL (80-94); MONOCYTES % (AUTO) 6.3 % (1.7-9.3); NEUTROPHILS # (AUTO) 12.7 K/uL (1.8-7.7); NEUTROPHILS % (AUTO) 79.1 % (42.2-75.2); PLATELET COUNT (AUTO) 318 K/uL (140-450); POTASSIUM 3.7 mmol/L (3.5-5.1); RED BLOOD CELL COUNT(AUTO) 3.39 MIL/uL (4.20-6.10); RED CELL DISTRIBUTION WIDTH 19.2 % (11.6-13.7); SODIUM SERUM 139 mmol/L (136-145); UREA NITROGEN, BLOOD 20 mg/dL (7-18)
[2021-03-09] MEDS: ALBUTEROL SULFATE/IPRATROPIU 3 ML SOL IH SCH ×2 (07:16→13:54)
--- NOTE | 2021-03-09 07:20 | NUR ---
RECEIVED REPORT FROM JUICE BAR TEAM MEMBER NURSE FOR CONTINUITY OF CARE. PATIENT SLEEPING. BREATHING EVEN AND UNLABORED. PATIENT ON 3 L VIA OXYMIZER SATING AT 94%. L WRIST 20G RUNNING D5 1/2 NS AT 100 ML/HR. ALL SAFETY MEASURES IN PLACE. WILL CONTINUE TO MONITOR.
--- NOTE | 2021-03-09 07:24 | NUR ---
REPORT GIVEN TO ANURAG ALEXANDER FOR CONTINUITY OF CARE. PT RESTING COMFORTABLY. NO APPARENT S/S OF ACUTE DISTRESS. BREATHING EVEN AND UNLABORED. BED IN LOW/LOCKED POSITION. CALL LIGHT WITHIN REACH. ALL NEEDS MET AT THIS TIME.
[2021-03-09 08:00] VITALS: BP 136/85
[2021-03-09] MEDS: ASCORBIC ACID 500 MG/5 ML ORASYR GT SCH (10:13)
[2021-03-09] MEDS: TAMSULOSIN 0.4 MG CAP GT SCH (10:13)
--- NOTE | 2021-03-09 10:13 | NUR ---
PATIENT AWAKE. NO ACUTE DISTRESS NOTED. PATIENT ON 3 L OXIMIZER. SCHEDULED MEDICATION GIVEN. ALL SAFETY MEASURES IN PLACE. CALL LIGHT WITHIN REACH. WILL CONTINUE TO MONITOR.
[2021-03-09] MEDS: MULTIVITAMIN/MINERALS 1 TAB GT SCH (10:14)
[2021-03-09] MEDS: PANTOPRAZOLE 40 MG TABEC PO SCH (10:14)
[2021-03-09] MEDS: CLOPIDOGREL 75 MG TAB GT SCH (10:14)
[2021-03-09] MEDS: DEXT 5% / NACL 0.45% 1,000 ML IV SCH (10:18)
[2021-03-09 12:00] VITALS: BP 139/94
--- NOTE | 2021-03-09 12:48 | NUR ---
PATIENT AWAKE. NO ACUTE DISTRESS NOTED. PATIENT ON 3 L OXIMIZER. RECORDS MANAGEMENT ASSISTANT AT BEDSIDE PROVIDING ADLS. ALL SAFETY MEASURES IN PLACE. CALL LIGHT WITHIN REACH. WILL CONTINUE TO MONITOR.
[2021-03-09] MEDS: THERAHONEY GEL 42.5 GM TP SCH (12:59)
--- NOTE | 2021-03-09 13:56 | NUR ---
RT AT BEDSIDE.
--- NOTE | 2021-03-09 14:48 | NUR ---
PATIENT AWAKE. NO ACUTE DISTRESS NOTED. PATIENT ON 3 L OXIMIZER. ALL SAFETY MEASURES IN PLACE. CALL LIGHT WITHIN REACH. WILL CONTINUE TO MONITOR.
[2021-03-09] MEDS ORDERED: NACL 0.9% 1,000 ML IV SCH (14:50)
[2021-03-09] MEDS: CEFEPIME 1,000 MG in DEXTROSE 5% 50 ML IV SCH (14:56)
[2021-03-09] MEDS: NACL 0.9% 500 ML IV SCH (15:06)
[2021-03-09 16:00] VITALS: BP 146/84
--- NOTE | 2021-03-09 16:29 | NUR ---
PATIENT SLEEPING. NO ACUTE DISTRESS NOTED. PATIENT ON 3 L VIA OXIMIZER. PATIENT SATING O2 AT 96%. CALL LIGHT WITHIN REACH. ALL SAFETY MEASURES IN PLACE. WILL CONTINUE TO MONITOR.
[2021-03-09] MEDS: ATORVASTATIN 20 MG TAB GT SCH (17:34)
--- NOTE | 2021-03-09 18:05 | NUR ---
PATIENT SLEEPING. NO ACUTE DISTRESS NOTED. PATIENT ON 3 L OXIMIZER. PATIENT O2 SATING 95% ALL SAFETY MEASURES IN PLACE. CALL LIGHT WITHIN REACH. WILL CONTINUE TO MONITOR.
[2021-03-09] MEDS ORDERED: ACETYLCYSTEINE 10% (100 MG/ML) 100 MG/ML VIAL INH SCH (19:00)
--- NOTE | 2021-03-09 19:20 | NUR ---
ENDORSED TO PERFORMANCE IMPROVEMENT DIRECTOR NURSE FOR CONTINUITY OF CARE. PATIENT STABLE. ALL SAFETY MEASURES IN PLACE.
[2021-03-09] MEDS: ACETYLCYSTEINE 10% (100 MG/ML) 100 MG/ML VIAL INH SCH (20:10)
[2021-03-10] VITALS: BP 111/65
[2021-03-10] MEDS: HYDRAGUARD CREAM TP SCH ×2 (01:00→13:02)
[2021-03-10] MEDS: ACETYLCYSTEINE 10% (100 MG/ML) 100 MG/ML VIAL INH SCH (01:00)
[2021-03-10 04:00] VITALS: BP 129/68
[2021-03-10] MEDS: VANCOMYCIN HCL 25 MG/ML SOLN PO SCH ×3 (05:10→12:52)
[2021-03-10] MEDS: metroNIDAZOLE 500 MG/NS PREMIX 100 ML IV SCH ×2 (05:11→13:02)
--- NOTE | 2021-03-10 05:28 | NUR ---
PT SLEPT WELL VSS SR PAIN WAS WELL CONTROLLED , AM CARE GIVEN LINEN CHANGED
[2021-03-10 06:55] LABS: BASOPHILS # (AUTO) 0.1 K/uL (0.00-0.22); BASOPHILS % (AUTO) 0.4 % (0.0-2.0); EOSINOPHILS # (AUTO) 0.4 K/uL (0-0.4); EOSINOPHILS % (AUTO) 3.2 % (0.0-4.0); HEMATOCRIT 30.5 % (36-52); HEMOGLOBIN 9.8 g/dL (12.0-18.0); LYMPHOCYTES % (AUTO) 16.8 % (20.5-51.1); MEAN CORPUSCULAR HEMOGLOBIN 28 pg (27-31); MEAN CORPUSCULAR HGB CONC 32 g/dL (33-37); MEAN CORPUSCULAR VOLUME 88.5 fL (80-94); MONOCYTES # (AUTO) 1.1 K/uL (0.8-1.0); MONOCYTES % (AUTO) 9.5 % (1.7-9.3); NEUTROPHILS # (AUTO) 8.3 K/uL (1.8-7.7); NEUTROPHILS % (AUTO) 70.1 % (42.2-75.2); PLATELET COUNT (AUTO) 335 K/uL (140-450); RED BLOOD CELL COUNT(AUTO) 3.45 MIL/uL (4.20-6.10); RED CELL DISTRIBUTION WIDTH 19.1 % (11.6-13.7); WHITE BLOOD COUNT (AUTO) 11.9 K/uL (4.8-10.8)
[2021-03-10 06:58] LABS: ANION GAP 8.7 (8-16); CARBON DIOXIDE 29.1 mmol/L (21-32); CHLORIDE 104 mmol/L (98-107); CREATININE 1.1 mg/dL (0.6-1.3); GLUCOSE 111 mg/dL (74-106); POTASSIUM 3.8 mmol/L (3.5-5.1); SODIUM SERUM 138 mmol/L (136-145); UREA NITROGEN, BLOOD 24 mg/dL (7-18)
[2021-03-10] MEDS: NACL 0.9% 500 ML IV SCH (07:46)
[2021-03-10 08:00] VITALS: BP 136/82
[2021-03-10] MEDS: PANTOPRAZOLE 40 MG TABEC PO SCH (09:58)
[2021-03-10] MEDS: ASCORBIC ACID 500 MG/5 ML ORASYR GT SCH (09:58)
[2021-03-10] MEDS: CLOPIDOGREL 75 MG TAB GT SCH (09:59)
[2021-03-10] MEDS: MULTIVITAMIN/MINERALS 1 TAB GT SCH (09:59)
[2021-03-10] MEDS: TAMSULOSIN 0.4 MG CAP GT SCH (10:01)
--- NOTE | 2021-03-10 10:05 | NUR ---
ADMINISTERED SCHEDULED MEDS PER MD ORDER, MED EDUCATION PROVIDED, REINFORCEMENT NEEDED. G TUBE RESIDUAL 25 ML, FLUSHED BEFORE AND AFTER MEDS.
[2021-03-10] MEDS ORDERED: FAMO-90 GT (11:52)
[2021-03-10] MEDS ORDERED: CEFE1SOL IV (11:52)
[2021-03-10] MEDS ORDERED: DOCU-299 PO (11:52)
[2021-03-10] MEDS ORDERED: CLOP75TA26 GT (11:52)
[2021-03-10] MEDS ORDERED: Hydraguard TP (11:52)
[2021-03-10] MEDS ORDERED: ASCO-672 GT (11:52)
[2021-03-10] MEDS ORDERED: TAMS0.4C96 GT (11:52)
[2021-03-10] MEDS ORDERED: MULT-1328 GT (11:52)
[2021-03-10] MEDS ORDERED: VITA-16 GT (11:52)
[2021-03-10] MEDS ORDERED: METR500T1 PO (11:52)
[2021-03-10] MEDS ORDERED: ATOR10TA GT (11:52)
[2021-03-10] MEDS ORDERED: Foam Dressing TP (11:52)
[2021-03-10] MEDS ORDERED: VANC25SO GT (11:52)
[2021-03-10] MEDS ORDERED: LACT1CAP59 GT (11:52)
[2021-03-10] MEDS ORDERED: ACET-1182 PO (11:52)
[2021-03-10 12:00] VITALS: BP 131/81
[2021-03-10] MEDS: THERAHONEY GEL 42.5 GM TP SCH (13:02)
--- NOTE | 2021-03-10 13:54 | NUR ---
DC PLANNING: CM SPOKE WITH PATIENTS MIGUEL BY PHONE TO ENDORSE THAT PATIENT HAS AN ORDER TO DC TO SNF TODAY. PATIENT IS S/P CVA WITH MULTIPLE CO-MORBIDITIES AND IS BEDBOUND AND PRIMARILY NON-VERBAL. THE PATIENTS EXPRESSED CONCERNS ABOUT HIS CARE AT SNF LEVEL AND STATES THAT SHE'S UNHAPPY WITH THE CARE PROVIDED AT BOTH SNF'S HE'S BEEN IN BUT DOESN'T HAVE A PREFERENCE FOR ANOTHER FACILITY. CM EXPLAINED THAT HE CAN TRANSFER TO A [facility] SNF BUT SHE NEEDS TO SPEAK WITH MORA FIRST AND LET HER KNOW THAT THEY ARE NOT RESPONDING QUICKLY RIGHT NOW. ENDORSED THAT THE PATIENT WILL CONTINUE ON IV ABX AND O2 AT THE SNF AND THAT ORDERS FOR THESE HAVE BEEN SENT TO [facility]. ALSO SPOKE WITH CLARENCE IN ADMISSIONS AT [facility], PATIENT IS ASSIGNED RM 118A, ALSO ENDORSED THE PATIENTS CONCERNS AND ASKED IF THE LEHR ATTENDANT CAN SPEAK WITH HER. TRANSPORT SET UP FOR [facility] WITH 3L O2 WITH [facility]. TRANSPORT AND FACILITY ENDORSED TO THE CHARGE NURSE CORDELL, ALSO ENDORSED ARRANGEMENTS WITH THE PATIENTS . CM WILL FOLLOW FOR NEEDS.
[2021-03-10] MEDS: CEFEPIME 1,000 MG in DEXTROSE 5% 50 ML IV SCH (14:02)
--- NOTE | 2021-03-10 14:30 | NUR ---
PATIENT CLEANED, HYGIENE PROVIDED, CHANGED ALL DIRTY LINEN WITH CARGO SERVICE SUPERVISOR ASSISTANCE. REPOSITIONED AND OFFLOADED PRESSURE WITH PILLOWS. CHANGE DIRECTOR IN PLACE. SAFETY MEASURES IN PLACE.
--- NOTE | 2021-03-10 15:03 | NUR ---
PLACED PATIENT ON ROOM AIR TO ESTABLISH POSSIBLE NEED FOR OXYGEN AT HOME. PATIENT TOLERATED ROOM AIR WELL. LEFT PATIENT ON ROOM AIR AT THIS TIME. PATIENT LIKELY HAVE NO NEED FOR OXYGEN AT HOME CURRENTLY.
--- NOTE | 2021-03-10 15:07 | NUR ---
CALLED TO GIVE REPORT TO RECEIVING FACILITY, ON HOLD FOR 10 MINUTES THEN THE CALL WAS DROPPED. UNABLE TO GIVE REPORT TO RECEIVING FACILITY NURSE AT THIS TIME. WILL TRY AGAIN.
--- NOTE | 2021-03-10 16:25 | NUR ---
PATIENT DISCHARGED AT THIS TIME, ALERT, BREATHING EVEN AND UNLABORED, NO SIGNS OF ACUTE DISTRESS NOTED. COLLAZO CATHETER IN PLACE, L WRIST 20G CLEAN DRY AND INTACT, SL. EVENT COORDINATOR MARKETING AND SALES REMOVED CHERYL THIS TIME. TAKEN OUT VIA GURNEY BY TRANSPORT PERSONNEL. IDENTIFICATION WRIST BAND REMOVED, PATIENT EDUCATED ON PLAN OF CARE AND AWARE THAT FAMILY IS ALSO AWARE OF PLAN OF CARE.
== END 2021-03-10 16:41 | disposition short-term general hospital (02) | DRG 871 ==
LOC: MED 14:39 → MTU 18:14 → MIC 23:50 → MTU 03-05 18:12
PROVIDERS: ADMIT Family Medicine; ATTEND Family Medicine
DX: A41.9 Sepsis, unspecified organism (principal); J69.0 Pneumonitis due to inhalation of food and vomit; J96.00 Acute respiratory failure, unspecified whether with hypoxia or hypercapnia; N17.0 Acute kidney failure with tubular necrosis; E43 Unspecified severe protein-calorie malnutrition; G93.41 Metabolic encephalopathy; A04.72 Enterocolitis due to Clostridium difficile, not specified as recurrent; B37.49 Other urogenital candidiasis; E87.0 Hyperosmolality and hypernatremia; Z68.1 Body mass index [BMI] 19.9 or less, adult; Z66 Do not resuscitate; I25.10 Atherosclerotic heart disease of native coronary artery without angina pectoris; L89.90 Pressure ulcer of unspecified site, unspecified stage; Z20.822 Contact with and (suspected) exposure to COVID-19; E86.0 Dehydration; D63.1 Anemia in chronic kidney disease; N18.31 Chronic kidney disease, stage 3a; I12.9 Hypertensive chronic kidney disease with stage 1 through stage 4 chronic kidney disease, or unspecified chronic kidney disease; R74.01 Elevation of levels of liver transaminase levels; Z79.2 Long term (current) use of antibiotics; Z86.73 Personal history of transient ischemic attack (TIA), and cerebral infarction without residual deficits; Z88.0 Allergy status to penicillin; Z79.899 Other long term (current) drug therapy
CPT/HCPCS: 36415; 36600; 71045; 80048; 80053; 81001; 82150; 82550; 82728; 82803; 83036; 83605; 83615; 83690; 83735; 83880; 84100; 84436; 84439; 84443; 84479; 84484; 85025; 85379; 85384; 85610; 85730; 86140; 87040; 87070; 87081; 87086; 87205; 87804; 93005; 94640; 96365; 96368; 96375; 99291; J0456; J0692; J0696; J1100; J1450; J2001; J2543; J3370; J3480; J3490; J7030; J7060; Q0092; U0003